=== PATIENT | female | born 1970 | race American Indian/Alaskan Native ===

== ENCOUNTER 2016-07-23 15:25 | Emergency (ER) | payer BC ==
[2016-07-23 16:19] VITALS: BP 122/77
--- NOTE | 2016-07-23 17:48 | Emergency Department Report ---
Abscess Boil HPI - HPI Chief Complaint: Skin/Abscess/Foreign Body Stated Complaint: ABCESS UNDER LFT ARM Time Seen by Provider: 07/23/16 17:37 Duration: >1 Week Location: Upper Extremity Severity: Moderate History: Yes Pain, No Fever, No Purulent Drainage, No Numbness, No Foreign Body , No Previous History, No Insect Bite HPI: Pt has small abscess to L axilla. Hx of fibromyalgia- states she has low tolerance for pain. Home Medications: Previous Rx's Medication Instructions Recorded Last Taken Type Sulfamethoxazole/Trimethoprim 1 each PO BID #20 tablet 07/23/16 Unknown Rx [Bactrim DS TAB] Allergies/Adverse Reactions: Allergies Allergy/AdvReac Type Severity Reaction Status Date / Time gabapentin [From Neurontin] Allergy THROAT Unverified 08/06/15 12:52 CLOSES ED Review of Systems ROS: Stated complaint: ABCESS UNDER LFT ARM Other details as noted in HPI Comment: All other systems reviewed and negative Constitutional: denies: chills, fever Eyes: denies: eye pain, eye discharge, vision change ENT: denies: ear pain, throat pain Respiratory: denies: cough, shortness of breath, wheezing Cardiovascular: denies: chest pain, palpitations Endocrine: no symptoms reported Gastrointestinal: denies: abdominal pain, nausea, diarrhea Genitourinary: denies: urgency, dysuria, discharge Musculoskeletal: denies: back pain, joint swelling, arthralgia Skin: denies: rash, lesions Neurological: denies: headache, weakness, paresthesias Psychiatric: denies: anxiety, depression Hematological/Lymphatic: denies: easy bleeding, easy bruising ED Past Medical Hx - Past Medical History Additional medical history: Fibromyalgia - Surgical History Additional Surgical History: Tonsil, appendix, breast cyst - Social History Smoking Status: Never Smoker Substance Use Type: Alcohol - Medications Home Medications: Home Medications Medication Instructions Recorded Confirmed Last Taken Type Sulfamethoxazole/Trimethoprim 1 each PO BID #20 tablet 07/23/16 Unknown Rx [Bactrim DS TAB] ED Abscess Boil Physical Exam - Exam General: Vital signs noted. No distress. Alert and acting appropriately. Size: 2 cm Exam: Yes Tenderness (L axilla), Yes Fluctuance, Yes Normal Neurologic Exam, Yes Normal Circulation, No Surrounding Cellulites/Erythema, No Lymphangitis, No Crepitation, No Heart Murmur I & D Note - I & D Note I & D Note: Area prepped and draped in usual sterile fashion. 2.5 mL of lidocaine 2% w/ epi was injected into area. Betadine X 3 applied. A small incision was made with an 11 blade. A moderate amount of purulent drainage was expressed. 5 cm of 1/4" iodoform packing was placed. Dressing applied. Pt tolerated procedure well. ED Course Vital Signs 07/23/16 16:15 Temperature 98.0 F Pulse Rate 79 Respiratory 16 Rate Blood Pressure 122/77 O2 Sat by Pulse 100 Oximetry - Reevaluation(s) Reevaluation #1: 07/23/16 18:17 NAD, stable for d/c. Critical care attestation.: If time is entered above; I have spent that time in minutes in the direct care of this critically ill patient, excluding procedure time. ED Medical Decision Making - Medical Decision Making Follow in 2 days for recheck. - Differential Diagnosis abscess, cellulitis ED Disposition Clinical Impression: Abscess of axilla, left Disposition: DISCHARGED TO HOME OR SELFCARE Is pt being admited?: No Condition: Stable Instructions: Abscess (ED), Abscess Incision and Drainage (ED) Prescriptions: Sulfamethoxazole/Trimethoprim [Bactrim DS TAB] 1 each PO BID #20 tablet Referrals: ANDERS GLEASON MD [Primary Care Provider] - 2-3 Days Time of Disposition: 18:18
[2016-07-23] MEDS ORDERED: XYLOCAINE 2%/EPI 1:100,000 INFILTRATI ONE (17:52)
== END 2016-07-23 18:27 | disposition home or self-care (01) ==
LOC: ED 15:25
DX: L02.412 Cutaneous abscess of left axilla (principal)
CPT/HCPCS: 99282